=== PATIENT | female | born 1960 | race Caucasian/White ===

== ENCOUNTER 2024-10-08 10:28 | Outpatient (REF) | payer MEDICAID, SELFPAY ==
[2024-10-08 11:04] LABS: MANUAL DIFF FLAG NO
[2024-10-08 12:01] LABS: Basophils Percent Auto 0.7 % (0-2); Eosinophils Absolute Auto 0.1 X10*3/uL (0.0-0.4); Eosinophils Percent Auto 1.4 % (0-4); Hematocrit 42.6 % (37.0-47.0); Hemoglobin 13.1 g/dl (12.0-16.0); Imm Gran Abs Auto 0.01 X10*3/uL (0.00-0.03); Imm Gran Pct Auto 0.2 % (0.0-0.4); Lymphocytes Absolute Auto 2.3 X10*3/uL (1.2-4.9); Mean Corpuscular HGB Conc 30.8 g/dl (31.0-35.0); Mean Corpuscular Hemoglobin 25.9 pg (27.0-33.0); Mean Corpuscular Volume 84.4 fL (80.0-98.0); Mean Platelet Volume 11.2 fL (9.4-12.3); Monocytes Absolute Auto 0.4 X10*3/uL (0.1-1.2); Monocytes Percent Auto 6.6 % (2-11); Neutrophils Absolute Auto 2.8 x10*3/uL (2.0-8.3); Neutrophils Percent Auto 50.1 % (45-73); Platelet Count 228 X10*3/uL (160-400); Red Blood Count 5.05 X10*6/uL (4.20-5.50); Red Cell Distribution Width 13.7 % (11.0-16.0); White Blood Count 5.6 X10*3/uL (4.8-10.8)
--- OUTSIDE RECORDS SUMMARY | 2024-10-08 12:42 | XMS_ITS | Encounter Summary ---
Author Organization [facility] Address [address] [place] [address] Care Team Providers Care Alumni Relations Coordinator Name Role Phone Amy Ledesma PA-C Primary Care Provider + [phone] Reason for Visit * Reason Comments Dental Restorative Encounter Details Date Type Department Care Team ([facility] st Contact Info) Description 09/20/2024 11:00 AM EST Office Visit [facility] [address] [place] [phone] Geraldo Sam DDS [address] [place] [address] Caries (Primary Dx) Social History Tobacco Use Types Packs/Day Years Used Date Smoking Tobacco: Never Smokeless Tobacco: Never Alcohol Use Standard Drinks/Week Comments No 0 (1 standard drink = 0.6 oz pur e alcohol) Social Connections Answer Date Recorded Connectedness 1 09/04/2024 Financial Resource Strain Answer Date R ecorded Financial Resource Strain 1 2024 Stress Answer Date Recorded Stress 1 09/04/2024 Physical Activity Answer Date Recorded Physical Activity 0 10/21/2020 Food Insecurity Answer Date Recorded Food 1 09/04/2024 Transportation Needs Answer Date Record ed Transportation 1 09/04/2024 Housing Stability Answer Date Recorded Housing 1 09/04/2024 Safety and Environment Answer Date Papo rded Safety 1 11/28/2023 Utilities Answer Date Recorded Utilities 1 09/04/2024 Employment Answer Date Recorded Stress 0 10/21/2020 Comments No Sex and Gender Information Value Date Recorded Sex Assigned at Female 04/12/2017 10:33 AM PDT Legal Sex Female 7:53 AM PST Gender Identity Female 04/12/2017 10:33 AM PDT Sexual Orientation Straight 04/12/2017 10 :33 AM PDT documented as of this encounter Last Filed Vital Signs Vital Sign Reading Time Taken Comments Blood Pressure 158/81 09/20/2024 11:25 AM EST Pulse 67 09/20/2024 11:25 AM EST Temperature - - Respiratory Rate - - Oxygen Saturation - - Inhaled Oxygen Concentration - - Weight - - Height - - Body Mass Index - - documented in this encounter Progress Notes * Geraldo Sam DDS - 09/20/2024 11:44 AM EST Restorative Subjective Manal Melody Burger, 64 year old female, presents alone for restorative. Esl Professor: Yes: Latvian Chief Complaint Patient presents with Dental Restorative Objective RMHx: Yes Vitals: Vitals: 09/20/24 1125 BP: (!) 158/81 Pulse: 67 BP Site: Left Wrist BP Position: Sitting BP Cuff Size: Regular Adult Pain Score: 0 - No pain Assessment Dx: K02.9 Caries (primary encounter diagnosis) Dx Details (Clinical Decision-Making): #20-DB (V) caries clinical findings. Tooth is Asymptomatic. Plan Informed Consent/PARQ (Procedure, Alternatives, Risks, Questions): Patient confirms informed consent using PARQ. Dental procedures in this visit D2392 - RESIN-BASED COMPOSITE - TWO SURFACES POSTERIOR 20 DB(V) (Completed) Service provider: Geraldo Sam DDS Billing provider: Geraldo Sam DDS Topical Anesthetic: 20% topical benzocaine Local Anesthetic: 1/4 carpule 2% lidocaine with 1:100k epi Injection administered: Infiltration Isolation used: Cotton roll Excavation of caries completed. No pulpal involvement Details: Etch, Marino, Fuji II LC Shade: A3. Contour/Trinidadian: Yes Verified floss Post-Op Information Given: verbal Referral: No orders of the following type(s) were placed in this encounter: Referral. Rx: No orders of the defined types were placed in this encounter. Behavior: Compliant DA: Nila Morrissey [place]: Recall Exam - 6 months VS Ext ROMA Lambert documented in this encounter Plan of Treatment Upcoming Encounters Date Type Department Care Team (Late st Contact Info) Description 10/28/2024 11:00 AM EDT /MH Visits [facility] [address] [place] [phone] Adolfo Katherine, APPLICATIONS INTERN [address] [place] [address] 02/06/2025 4:20 PM EDT Office Visit [facility] [address] [place] [phone] Lorena Storm [address] [place], [place] [phone] documented as of this encounter Procedures Procedure Name Priority Date/Time Associated Diagnosis Comments 20 DB(V) RESIN-BASED COMPOSITE - TWO SURFACES POSTERIOR Routine 09/20/2024 11:00 AM EST Caries documented in this encounter Visit Diagnoses Diagnosis Caries- Primary Unspecified dental caries documented in this encounter Additional Health Concerns Assessment Noted Time PHQ-9 Depression Total Score: 0 09/04/19 25 11:36 AM PST documented as of this encounter Care Teams Alumni Relations Coordinator Relationship Specialty Start Date End Date Amy Ledesma PA-C [address] [place] [phone] PCP - General FAMILY MEDICINERAPHAEL 08/23/21 documented as of this encounter
--- OUTSIDE RECORDS SUMMARY | 2024-10-08 12:42 | XMS_ITS | Encounter Summary ---
Author Organization [facility] Address [address] [place] [address] Care Team Providers Care Municipal Firefighter Name Role Phone Amy Ledesma PA-C Primary Care Provider + [phone] Reason for Visit * Reason Comments Individual Counseling Telehealth (Video) Encounter Details Date Type Department Care Team ([facility] Contact Info) Description 09/23/2024 1:45 PM [facility]/ Visits [address] [phone] Chris Mata, [facility] [address] [place], [place] [phone] Major depressive disorder with current active episode, unspecified depression episode severity, unspecified whether recurrent - Severe (Primary Dx); PTSD (post-traumatic stress disorder) - Moderate Social History Tobacco Use Types Packs/Day Years [...] AM PDT documented as of this encounter Progress Notes * HARRIET Campbell - 09/23/2024 1:45 PM EST The following visit was conducted via Telephone. I educated the patient/guardian on the terms of telehealth and the patient verbally consented to this telemedicine visit. The patient was identified using their Name, and [facility] ID. I identified myself as CHRIS MATA HOME HEALTH ASSISTANT from [facility]. It was conducted in a private space to protect HIPPA sensitive information. Precautions were taken to provide confidentiality and security and patient was made aware of privacy considerations. The patients location was obtained and is [facility] The patient/guardian was notified that the services were being provided from [facility] Location. The patient/guardian was notified how they can see a clinician in-person in the event of an emergency or if otherwise needed. Visit START TIME 1:47 END TIME 2:13 Acquisition Manager used during visit? No TOTAL TIME IN SESSION: 30 minutes START/ END TIME: RISK ASSESSMENT: PERSON DENIES SI/HI OTHER PEOPLE PRESENT IN SESSION: NONE Assessed Needs/Goals/Objectives/Services Status Priority Assessed Needs 1: BH, Phys Hlth & Wellness Active 1 - High Status Target Date Goal 1.1: Lower client sx of depression, PTSD from all the time sever to 4-5 times a week moderte Active 03/26/2025 Status Target Date Objective 1.1.1: Client will be open to learn and practice sx and interventions about depression and PTSD to lower and manage her sx. Active 03/26/2025 Service Plan BH, Phys Hlth & Wellness Lower client sx of depression, PTSD from all the time sever to 4-5 times a week moderte Client will be open to learn and practice sx and interventions about depression and PTSD to lower and manage her sx. PROGRESS SINCE LAST SESSION TOWARD GOALS/OBJECTIVES: Client stated having dreams of placese back home with people she dos not recognize. She stated feeling home sick to her sisters and their children. Her own grand children who are in another state. NEW CONCERNS TODAY: NEED TO COMPLETE COMPREHENSIVE ASSESSMENT AND IAP UPDATES Health issues making it difficult for her to travel. MOOD: DYSPHORIC and ANXIOUS AFFECT: FULL RANGE AND CONGRUENT WITH MOOD SPEECH: WNL BEHAVIOR: COOPERATIVE EYE CONTACT: phone call, no eye contact THOUGHT PROCESSES: WNL ORIENTATION: WNL MEDICAL CONCERNS: NOTHING NEW COMMENT: SUBSTANCE USE: NO HX INTERVENTIONS: Allowed time for client to tell his/her story and express emotions attached to story. Validated and empathized with emotions expressed. Brain stormed with client ways to manage her mood. PERSON'S RESPONSE TO INTERVENTIONS: FULLY ENGAGED and COOPERATIVE PLAN FOR NEXT SESSION: Support and teach client skills to lower and manage her sx. DATE OF NEXT SESSION: 10/28 CLIENT WILL: CONSIDER HOW DISCUSSION RELATES TO HIS/HER LIFE documented in this encounter Plan of Treatment Upcoming Encounters Date Type Department Care Team (Late st Contact Info) Description 10/28/2024 11:00 AM EDT / Visits [facility] [address] [place] [phone] Chris Mata LICSW [address] [place] [address] 02/06/2025 4:20 PM EDT Office Visit [facility] [address] [place] [phone] Lorena Storm [address] [place] [address] documented as of this encounter Visit Diagnoses Diagnosis Major depressive disorder with current active episode, unspecified depression episode severity, unspecified whether recurrent - Severe- Primary PTSD (post-traumatic stress disorder) - Moderate Posttraumatic stress disorder documented in this encounter Additional Health Concerns Assessment Noted Time PHQ-9 Depression Total Score: 0 09/04/19 25 11:36 AM PST documented as of this encounter Care Teams Municipal Firefighter Relationship Specialty Start Date End Date Amy Ledesma PA-C [address] [place] [phone] PCP - General FAMILY MEDICINE, [place] 08/23/21 documented as of this encounter
--- OUTSIDE RECORDS SUMMARY | 2024-10-08 12:43 | XMS_ITS | Encounter Summary ---
Author Organization [facility] Address [address] [place] [address] Care Team Providers Care Environmental Marketer Name Role Phone Amy Ledesma Primary Care Provider [phone] Reason for Visit * Reason Onset Date Comments ROCT - 25586 (Ok to Book) 10/02/2024 Encounter Details Date Type Department Care Team (Late st Contact Info) Description 10/02/2024 Telephone [facility] [address] [phone] Francis Mar MD [address] [facility] [address] [place] [address] ROCT - 99526 (Ok to Book) Social History Tobacco Use Types Packs/Day Years Used Date Smoking Tobacco: Never Smokeless Tobacco: Never Alcohol Use Standard Drinks/Week Comments No 0 (1 standard drink = 0.6 oz pur e alcohol) Comments Unknown Sex and Gender Information Value Date Recorded Sex Assigned at Not on file Legal Sex Female 9:36 AM EST Gender Identity Not on file Sexual Orientation Not on file documented as of this encounter Progress Notes * Lizz Frazier RN - 10/02/2024 10:33 AM EST Pt will be enrolled for home delivery of 21 day ROCT monitor per Bhavana Key. * Marion London - 10/02/2024 8:55 AM EST Prior Auth Status: NO Auth Req per Medicaid Insurance Referral: N/A CPT: 02083 - ROCT DX: I48.0, I47.10, R00.2 Duration: 21 Days [place]: Isabela cuellar BOOK documented in this encounter Plan of Treatment Upcoming Encounters Date Type Department Care Team (Late st Contact Info) Description 12/19/2024 11:00 AM EDT Appointment [facility] [address] [place] [address] 01/01/2025 10:40 AM EDT Office Visit [facility] - [facility] [address] [facility] [address] [place] [address] Bhavana Key PA [address] [place] [address] documented as of this encounter Visit Diagnoses Not on filedocumented in this encounter Care Teams Environmental Marketer Relationship Specialty Start Date End Date Amy Ledesma PA [address] [place] [address] PCP - General 04/06/23 documented as of this encounter
--- OUTSIDE RECORDS SUMMARY | 2024-10-08 12:43 | XMS_ITS | Encounter Summary ---
Author Organization [facility] Address [address] [place] [address] Care Team Providers Care Belt Sander Stone Name Role Phone Venkatesh Stewart PA-C Primary Care Provider + [phone] Reason for Referral * Radiology Services (Routine) - Authorized Specialty Diagnoses / Procedures Referred By Contjuany t Referred To Contact Diagnoses Post-menopausal Procedures REFERRAL FOR BONE DENSITY TESTING Venkatesh Steawrt PA-C [address] [place] [address] Phone: tel: fax: [facility] [address] [place], [place] Phone: tel: fax: Referral ID Status Reason Start Date Expiration Date Visits Requested Visits Authorized [id number] Authorized Service Not Available at Clinic 09/04/2024 09/04/2025 1 1 Reason for Visit * Reason Comments Follow Up Four month follow up no concern Encounter Details Date Type Department Care Team (Late st Contact Info) Description 09/04/2024 11:20 AM EST Office Visit [facility] [address] [place] [address] Venkatesh Stewart PA-C [address] [place] [address] Primary hypertension (Primary Dx); Dyslipidemia; Prediabetes; Vitamin D deficiency; Post-menopausal Social History Tobacco Use Types Packs/Day Years Used Date Smoking Tobacco: Never Smokeless Tobacco: Never Tobacco Cessation:Counseling Given: No Alcohol Use Standard Drinks/Week Comments No 0 [...] 1 09/04/2024 Safety and Environment Answer Date Ppao rded Safety 1 11/28/2023 Utilities Answer Date Recorded Utilities 1 09/04/2024 Employment Answer Date Recorded Stress 0 10/21/2020 Comments No Sex and Gender Information Value Date Recorded Sex Assigned at Female 04/12/2017 10:33 AM PDT Legal Sex Female 7:53 AM PST Gender Identity Female 04/12/2017 10:33 AM PDT Sexual Orientation Straight 04/12/2017 10 :33 AM PDT COVID-19 Exposure Response Date Recorded In the last 10 days, have yo u been in contact with someone who was confirmed or suspected to have Coronavirus/COVID-19? Unable to assess 08/14/2024 1:14 PM EST documented as of this encounter Last Filed Vital Signs Vital Sign Reading Time Taken Comments Blood Pressure 122/88 09/04/2024 11:32 AM EST Pulse 66 09/04/2024 11:32 AM EST Temperature 36.3 ??C (97.4 ??F) 09/04/2024 11:[address] Respiratory Rate 16 09/04/2024 11:32 AM EST Oxygen Saturation 98% 09/04/2024 11:32 AM EST Inhaled Oxygen Concentration - - Weight 72 kg (158 lb 12.8 oz) 09/04/2024 11:32 A M EST Height 157.5 cm (5' 2 ) 09/04/2024 11:32 AM EST Body Mass Index 29.04 09/04/2024 11:32 AM EST documented in this encounter Progress Notes * Venkatesh Stewart PA-C - 10/04/2024 1:52 PM ESTAddended by: VENKATESH STEWART on: 10/04/2024 01:52 PM Modules accepted: Orders * Venkatesh Stewart PA-C - 09/04/2024 11:37 AM EST Subjective: CC: Follow Up (Four month follow up no concern) Banquet Lead: HPI: Migel VagrasKennaGriselda Tao is a 64 year old female patient who presents today for follow up. Last 3 BP Readings: Date: BP: 09/04/2024 122/88 08/02/2024 149/84 05/20/2024 149/89 Lab Results Component Value Date TRIGLYC 229 (H) 04/26/2024 CHOL 151 04/26/2024 HDL 38 (L) 04/26/2024 LDL 81 04/26/2024 CHOLHDL 4.0 04/26/2024 NONHDL 113 04/26/2024 Lab Results Component Value Date HGBA1C 6.2 (H) 04/26/2024 HGBA1C 6.2 (H) 12/01/2023 HGBA1C 6.0 (H) 03/14/2023 No Known Allergies Patient Active Problem List Diagnosis Chronic cardiac arrhythmia Supraventricular tachycardia ([facility]) Low back pain PAF (paroxysmal atrial fibrillation) ([facility]) Prediabetes Dyslipidemia Kidney stones, calcium oxalate Fibromyalgia Sacroiliitis ([facility]) Osteopenia Vitamin D deficiency Cervical osteoarthritis Osteoarthritis thoracic spine Palpitations Use of cane as ambulatory aid LIZETT positive HTN (hypertension) Episode of recurrent major depressive disorder ([facility]) Vaginal dryness, menopausal PTSD (post-traumatic stress disorder) Current Outpatient Medications: metFORMIN (GLUCOPHAGE) 500 mg tablet, TAKE 1 TABLET BY MOUTH ONCE DAILY WITH BREAKFAST, Disp: 90 Tablet, Rfl: 1 atorvastatin (LIPITOR) 20 mg tablet, TAKE 1 TABLET BY MOUTH ONCE DAILY WITH DINNER, Disp: 90 Tablet, Rfl: 1 cholecalciferol (VITAMIN D-3) 25 mcg (1,000 unit) tablet, TAKE 1 TABLET BY MOUTH EVERY DAY, Disp: 90 Tablet, Rfl: 1 bisoprolol (ZEBETA) 5 mg tablet, Take 5 mg by mouth once daily, Disp: , Rfl: escitalopram (LEXAPRO) 20 mg tablet, Take 20 mg by mouth once daily, Disp: , Rfl: LORazepam (ATIVAN) 0.5 mg tablet, Take 0.5 mg by mouth nightly at bedtime as needed for anxiety, Disp: , Rfl: MULTAQ 400 mg tab, Take 1 Tablet by mouth 2 (two) times daily, Disp: , Rfl: acetaminophen (TYLENOL) 500 mg tablet, TAKE 1 TABLET BY MOUTH EVERY 6 HOURS NEEDED FOR PAIN OR FEVER, Disp: 120 Tablet, Rfl: 2 estradioL (ESTRACE) 0.01 % (0.1 mg/gram) vaginal cream, Place 2 g vaginally nightly at bedtime for 14 days, THEN 2 g 2 times a week for 360 days., Disp: 42.5 g, Rfl: 5 pregabalin (LYRICA) 75 mg capsule, Take 75 mg by mouth 2 (two) times daily, Disp: , Rfl: triamcinolone (KENALOG) 0.025 % ointment, Apply topically 2 (two) times daily, Disp: 15 g, Rfl: 0 baclofen (LIORESAL) 10 mg tablet, TAKE 1 TABLET BY MOUTH TWICE A DAY NEEDED, Disp: , Rfl: loratadine (CLARITIN) 10 mg tablet, Take 1 Tablet by mouth once daily as needed for allergies, Disp: 90 Tablet, Rfl: 1 losartan (COZAAR) 25 mg tablet, Take 25 mg by mouth, Disp: , Rfl: apixaban (ELIQUIS) 5 mg tab, Take 5 mg by mouth, Disp: , Rfl: metoprolol tartrate (LOPRESSOR) 25 mg tablet, Take 25 mg by mouth, Disp: , Rfl: sertraline (ZOLOFT) 50 mg tablet, Take 1 Tablet by mouth once daily, Disp: , Rfl: gabapentin (NEURONTIN) 100 mg capsule, TAKE 1 CAPSULE BY MOUTH THREE TIMES A DAY, Disp: 90 Capsule,Rfl: 3 diclofenac sodium (VOLTAREN) 1 % gel, Apply 2 gm topically two to three times per day as needed to affected area for pain relief, Disp: 100 g, Rfl: 1 calcium carbonate-vitamin D3 500 mg(1,250mg) -400 unit tablet, Take 1 Tab by mouth 2 (two) times daily, Disp: 60 Tab, Rfl: 11 Review of Systems Remainder ROS: See HPI, systems reviewed and are otherwise negative or noncontributory. Objective: Vitals: 09/04/24 1132 BP: 122/88 Pulse: 66 Resp: 16 Temp: 97.4 ??F (36.3 ??C) TempSrc: Oral SpO2: 98% Weight: 158 lb 12.8 oz (72 kg) Height: 5' 2 (1.575 m) Body mass index is 29.04 kg/m??. Physical Exam Constitutional: General: She is not in acute distress. Cardiovascular: Rate and Rhythm: Normal rate and regular rhythm. Pulmonary: Effort: Pulmonary effort is normal. No respiratory distress. Breath sounds: Normal breath sounds. Neurological: Mental Status: She is alert and oriented to person, place, and time. 09/04/2024 11:36 AM Little interest or pleasure in doing things Not at all Feeling down, depressed or hopeless [include irritable if under 18] Not at all Trouble falling or staying asleep, or sleeping too much Not at all Feeling tired or having little energy Not at all Poor appetite or overeating Not at all Feeling bad about yourself - or that you are a failure or have let yourself or your family down Notat all Trouble concentrating on things like school work, reading or watching TV? Not at all Moving or speaking so slowly that other people could have noticed? Or the opposite - being so fidgety or restless that you have been moving around a lot more than usual Not at all Thoughts you would be better off or of hurting yourself in some way Not at all If you checked off any problems, how difficult have these problems made it for you to do your work,take care of things at home, or get along with other people? Not difficult at all PHQ-9 Total Score (Auto Calculated) 0 Depression Severity: None-minimal Assessment and Plan: Migel Burger is a 64 year old female patient who was seen today for follow up. Labs ordered, advised fasting. Advised to call with any questions or concerns. Weight management:BMI follow up plan: The patient was counseled regarding nutrition and physical activity. Counseled for healthy lifestyle, dietary habits, physical activity and regular exercise.Encouraged to make healthier eating choices with less refined carbs and smaller portions along with regular exercise 3-4x/week for at least 20-30min. Avoid fried foods, oily foods and limit foods rich in dense calories. Increase fruits and vegetables. I10 Primary hypertension (primary encounter diagnosis) Plan : BLOOD COUNT COMPLETE AUTO&AUTO DIFRNTL WBC COMPREHENSIVE METABOLIC PANEL LIPID PANEL E78.5 Dyslipidemia Plan : BLOOD COUNT COMPLETE AUTO&AUTO DIFRNTL WBC COMPREHENSIVE METABOLIC PANEL LIPID PANEL R73.03 Prediabetes Plan : BLOOD COUNT COMPLETE AUTO&AUTO DIFRNTL WBC COMPREHENSIVE METABOLIC PANEL HEMOGLOBIN GLYCOSYLATED A1C LIPID PANEL E55.9 Vitamin D deficiency Plan : VITAMIN D, 1,25-DIHYDROXY Z78.0 Post-menopausal Plan : REFERRAL FOR BONE DENSITY TESTING ASSAY OF MAGNESIUM VITAMIN B12 & FOLATE IRON PANEL W TOTAL IRON BINDING CAPACITY Return in about 4 months (around 01/02/2025) for f/u pre-DM, htn, hld . documented in this encounter Miscellaneous Notes * Result Encounter Note - Venkatesh Stewart PA-C - 10/04/2024 1:52 PM EST Please let pt know that A1C keeps creeping up, now at 6.3. 6.5 is DM. Will increase metformin to BID. Thanks! * Patient Instructions - Venkatesh Stewart PA-C - 09/04/2024 11:46 AM EST If you are not able to keep your appointment please call 24-48 hours before your appointment to cancel or reschedule. documented in this encounter Plan of Treatment Upcoming Encounters Date Type Department Care Team (Late st Contact Info) Description 10/28/2024 11:00 AM EDT / Visits [facility] [address] [place] [address] Katherine Mata, [employer] [address] [place], [place] [phone] 02/06/2025 4:20 PM EDT Office Visit [address] [phone] Lorena Storm [address] [place] [address] Scheduled Orders Name Type Priority Associated Diagnoses Orde r Schedule REFERRAL FOR BONE DENSITY TESTING Imaging Routine Post-menopausal Ordered: 09/04/2024 documented as of this encounter Procedures Procedure Name Priority Date/Time Associated Diagnosis Comments VITAMIN D, 1,25-DIHYDROXY Routine 10/02/2024 7:48 AM EST Vitamin D deficiency IRON PANEL W TOTAL IRON BINDING CAPACITY Routine 10/02/2024 7:48 AM EST Post-menopausal VITAMIN B12 & FOLATE Routine 10/02/2024 7:48 AM EST Post-menopausal BLOOD COUNT COMPLETE AUTO&AUTO DIFRNTL WBC Routine 10/02/2024 7:48 AM EST Primary hypertension Dyslipidemia Prediabetes ASSAY OF MAGNESIUM Routine 10/02/2024 7: 48 AM EST Post-menopausal HEMOGLOBIN GLYCOSYLATED A1C Routine 10/02/2024 7:48 AM EST Prediabetes LIPID PANEL Routine 10/02/2024 7:48 AM EST Primary hypertension Dyslipidemia Prediabetes COMPREHENSIVE METABOLIC PANEL Routine 10/02/2024 7:48 AM EST Primary hypertension Dyslipidemia Prediabetes documented in this encounter Results * IRON PANEL W TOTAL IRON BINDING CAPACITY (10/02/2024 7:48 AM EST) IRON, TOTAL 77 45 - 160 mcg/dL [facility] IRON BINDING CAPACITY 344 250 - 450 mcg/dL (calc) [facility] % SATURATION 22 16 - 45 % (calc) [facility] Blood Blood / Unknown 10/02/2024 7 :48 AM EST 10/02/2024 7:49 AM EST Narrative [facility] - 10/06/2024 4:34 PM EDT FASTING:YES Venkatesh Stewart PA-C LAB - BLOOD DRAW Edited Resu lt - Final Performing Organization Address City/[facility]/ZIP Co de Phone Number [facility] [address] [address], [facility] [address] [address] * VITAMIN B12 & FOLATE (10/02/2024 7:48 AM EST) [facility] VITAMIN B12 304 200 - 1,100 pg/mL [facility] Comment: Please Note: Although the reference range for vitamin B12 is 200-1100 pg/mL, it has been reported that between 5 and 10% of patients with values between 200 and 400 pg/mL may experience neuropsychiatric and hematologic abnormalities due to occult B12 deficiency; less than 1% of patients with values above 400 pg/mL will have symptoms. FOLATE, SERUM 13.9 5.5 ng/mL [facility] Comment: ? Reference Range ? Low: ? <3.4 ? Borderline: ?3.4-5.4 ? Normal: ?>5.4 Blood Blood / Unknown 10/02/2024 7 :48 AM EST 10/02/2024 7:49 AM EST Narrative [facility] - 10/06/2024 4:34 PM EDT FASTING:YES Venkatesh Stewart PA-C LAB - BLOOD DRAW Edited Resu lt - Final Performing Organization Address [facility]/ZIP Co de Phone Number [facility] [address] [address], [facility] [address] [address] * ASSAY OF MAGNESIUM (10/02/2024 7:48 AM EST) MAGNESIUM 2.2 1.5 - 2.5 mg/dL [facility] Blood Blood / Unknown 10/02/2024 7 :48 AM EST 10/02/2024 7:49 AM EST Narrative [facility] - 10/06/2024 4:34 PM EDT FASTING:YES us Venkatesh Stewart PA-C LAB - BLOOD DRAW Edited Resu lt - Final [facility] [address] [address], [facility] [address] [address] * VITAMIN D, 1,25-DIHYDROXY (10/02/2024 7:48 AM EST) VITAMIN D, 1, 25 (OH)2, TOTAL 44 18 - 72 pg/mL [facility] VITAMIN D3, 1, 25 (OH)2 44 pg/mL [facility] VITAMIN D2, 1, 25 (OH)2 <8 pg/mL [facility] Comment: Vitamin D3, 1,25(OH)2 indicates both endogenous production and supplementation. Vitamin D2, 1,25(OH)2 is an indicator of exogenous sources, such as diet or supplementation. ??Interpretation and therapy are based on measurement of Vitamin D,1,25(OH)2, Total. This test was developed and its analytical performance characteristics have been determined by [facility], [place], [place]. It has not been cleared or approved by the FDA. This assay has been validated pursuant to the CLIA regulations and is used for clinical purposes. Blood Blood / Unknown 10/02/2024 7 :48 AM EST 10/02/2024 7:49 AM EST Narrative [facility] - 10/06/2024 4:34 PM EDT FASTING:YES Venkatesh Stewart PA-C LAB - BLOOD DRAW Final Resul t Performing Organization Address City/[facility]/ZIP Co de Phone Number [facility] [address] [place], [place] , [facility]/[place] [address] [place], [place] * (ABNORMAL) LIPID PANEL (10/02/2024 7:48 AM EST) [facility] Signature CHOLESTEROL, TOTAL 129 <200 mg/dL [facility] HDL CHOLESTEROL 49(L) > OR = 50 mg/dL [facility] TRIGLYCERIDES 115 <150 mg/dL [facility] LDL-CHOLESTEROL 60 99 mg/dL (calc) [facility] Comment: Reference range: <100 Desirable range <100 mg/dL for primary prevention; ?? <70 mg/dL for patients with CHD or diabetic patients with > or = 2 CHD risk factors. LDL-C is now calculated using the Terry calculation, which is a validated novel method providing better accuracy than the Friedewald equation in the estimation of LDL-C. Jurgen BAI et al. FELY. 2013;310(19): 5020-5660 (http://education.[employer]/faq/BPO749) CHOL/HDLC RATIO 2.6 <5.0 (calc) [facility] NON-HDL CHOLESTEROL 80 <130 mg/dL (calc) [facility] Comment: For patients with diabetes plus 1 major ASCVD risk factor, treating to a non-HDL-C goal of <100 mg/dL (LDL-C of <70 mg/dL) is considered a therapeutic option. Blood Blood / Unknown 10/02/2024 7 :48 AM EST 10/02/2024 7:49 AM EST Narrative [facility] - 10/06/2024 4:34 PM EDT FASTING:YES us Venkatesh Stewart PA-C LAB - BLOOD DRAW Final Resul t Performing Organization Address City/[facility]/ZIP Co de Phone Number [facility] [address] [address], [facility] [address] [address] * (ABNORMAL) HEMOGLOBIN GLYCOSYLATED A1C (10/02/2024 7:48 AM EST) HEMOGLOBIN A1C 6.3(H) <5.7 % of total Hgb [facility] Comment: For someone without known diabetes, a hemoglobin A1c value between 5.7% and 6.4% is consistent with prediabetes and should be confirmed with a follow-up test. For someone with known diabetes, a value <7% indicates that their diabetes is well controlled. A1c targets should be individualized based on duration of diabetes, age, comorbid conditions, and other considerations. This assay result is consistent with an increased risk of diabetes. Currently, no consensus exists regarding use of hemoglobin A1c for diagnosis of diabetes for children. Blood Blood / Unknown 10/02/2024 7 :48 AM EST 10/02/2024 7:49 AM EST Narrative [facility] - 10/06/2024 4:34 PM EDT FASTING:YES Venkatesh Stewart PA-C LAB - BLOOD DRAW Edited Resu lt - Final [facility] [address] [place] [address], [facility] [address] [address] * (ABNORMAL) COMPREHENSIVE METABOLIC PANEL (10/02/2024 7:48 AM EST) GLUCOSE 113(H) 65 - 99 mg/dL [facility] Comment: ?Fasting reference interval For someone without known diabetes, a glucose value between 100 and 125 mg/dL is consistent with prediabetes and should be confirmed with a follow-up test. UREA NITROGEN (BUN) 14 7 - 25 mg/dL [facility] CREATININE (blood) 0.67 0.50 - 1.05 mg/dL [facility] EGFR 97 > OR = 60 mL/min/1. 73m2 [facility] BUN/CREATININE RATIO SEE NOTE: [facility] Comment: ?? Not Reported: BUN and Creatinine are within ?? reference range. ? SODIUM 140 135 - 146 mmol/L [facility] POTASSIUM 4.0 3.5 - 5.3 mmol/L [facility] CHLORIDE 105 98 - 110 mmol/L [facility] CARBON DIOXIDE 25 20 - 32 mmol/L [facility] CALCIUM 9.3 8.6 - 10.4 mg/dL [facility] PROTEIN, TOTAL 7.1 6.1 - 8.1 g/dL [facility] ALBUMIN 4.5 3.6 - 5.1 g/dL [facility] GLOBULIN 2.6 1.9 - 3.7 g/dL (calc) [facility] ALBUMIN/GLOBULI N RATIO 1.7 1.0 - 2.5 (calc) [facility] BILIRUBIN, TOTAL 0.4 0.2 - 1.2 mg/dL [facility] ALKALINE PHOSPHATASE 56 37 - 153 U/L [facility] AST 14 10 - 35 U/L [facility] ALT 13 6 - 29 U/L [facility] Blood Blood / Unknown 10/02/2024 7 :48 AM EST 10/02/2024 7:49 AM EST Narrative [facility] - 10/06/2024 4:34 PM EDT FASTING:YES Venkatesh Stewart PA-C LAB - BLOOD DRAW Edited Resu lt - Final [facility] [address] [address], [facility] [address] [address] * (ABNORMAL) BLOOD COUNT COMPLETE AUTO&AUTO DIFRNTL WBC (10/02/2024 7:48 AM EST) WHITE BLOOD CELL COUNT 5.6 3.8 - 10.8 Thousand/ uL [facility] RED BLOOD CELL COUNT 5.02 3.80 - 5.10 Million/u L [facility] HEMOGLOBIN 13.1 11.7 - 15.5 g/dL [facility] HEMATOCRIT 42.6 35.0 - 45.0 % [facility] MCV 84.9 80.0 - 100.0 fL [facility] MCH 26.1(L) 27.0 - 33.0 pg [facility] MCHC 30.8(L) 32.0 - 36.0 g/dL [facility] Comment: For adults, a slight decrease in the calculated MCHC value (in the range of 30 to 32 g/dL) is most likely not clinically significant; however, it should be interpreted with caution in correlation with other red cell parameters and the patient's clinical condition. RDW 13.4 11.0 - 15.0 % [facility] PLATELET COUNT 218 140 - 400 Thousand/ uL [facility] MPV 11.9 7.5 - 12.5 fL [facility] ABSOLUTE NEUTROPHILS 2,318 1,500 - 7,800 cells/uL [facility] ABSOLUTE LYMPHOCYTES 2,727 850 - 3,900 cells/uL [facility] ABSOLUTE MONOCYTES 431 200 - 950 cells/uL [facility] ABSOLUTE EOSINOPHILS 73 15 - 500 cells/uL [facility] ABSOLUTE BASOPHILS 50 0 - 200 cells/uL [facility] NEUTROPHILS PCT 41.4 % [facility] LYMPHOCYTES 48.7 % [facility] MONOCYTES 7.7 % [facility] EOSINOPHILS 1.3 % [facility] BASOPHILS 0.9 % [facility] Blood Blood / Unknown 10/02/2024 7 :48 AM EST 10/02/2024 7:49 AM EST Narrative [facility] - 10/06/2024 4:34 PM EDT FASTING:YES us Venkatesh Stewart PA-C LAB - BLOOD DRAW Edited Resu lt - Final [facility] [employer] [address] [address], [facility] [address] [place] [address] documented in this encounter Visit Diagnoses Diagnosis Primary hypertension- Primary Unspecified essential hypertension Dyslipidemia Other and unspecified hyperlipidemia Prediabetes Other abnormal glucose Vitamin D deficiency Post-menopausal Asymptomatic postmenopausal status (age-related) (natural) documented in this encounter Additional Health Concerns Assessment Noted Time PHQ-9 Depression Total Score: 0 09/04/19 25 11:36 AM PST documented as of this encounter Care Teams Belt Sander Stone Relationship Specialty Start Date End Date Venkatesh Stewart PA-C NPI: [id number] [place] [id number] PCP - General [facility] 08/23/21 documented as of this encounter
--- OUTSIDE RECORDS SUMMARY | 2024-10-08 12:43 | XMS_ITS | Clinical Summary ---
Author Organization [address] [place] [address] Address [address] [place] [address] Phone Care Team Providers Care Milk Pickup Driver Name Role Phone Amy Ledesma Primary Care Provider [phone] Allergies No known active allergies Medications losartan (COZAAR) 25 mg tablet Take 1 tablet (25 mg total) by mouth 1 (one) time each day. 90 tablet 2 4 Active acetaminophen (TYLENOL) 500 mg tablet Take 500 mg by mouth every 6 hours as needed. Active atorvastatin (LIPITOR) 20 mg tablet Take 1 Tablet by mouth at bedtime. 3 Active cholecalcifero l (VITAMIN D-3) 25 mcg (1,000 unit) capsule Take 1 Cap by mouth daily. 1 Active apixaban (Eliquis) 5 mg tablet TAKE 1 TABLET BY MOUTH TWICE DAILY 4 Active gabapentin (NEURONTIN) 300 mg capsule Take 1 Cap by mouth 2 times daily. 0 Active metFORMIN XR (GLUCOPHAGE-XR ) 500 mg 24 hr tablet Take 500 mg by mouth daily (with breakfast). Active sertraline (ZOLOFT) 50 mg tablet Take 1 Tablet by mouth daily. Active dronedarone (MULTAQ) 400 mg tablet Take 1 tablet (400 mg total) by mouth 2 (two) times a day with meals. Stop bisoprolol 60 each 2 5 11/01/19 25 Active bisoprolol (ZEBETA) 5 mg tablet TAKE 1 TABLET BY MOUTH DAILY 4 10/02/19 25 Discontinu ed(Therapy completed) Active Problems Problem Noted Date Diagnosed Date Increased heart rate 07/19/2022 SOB (shortness of breath) 07/19/2022 Dizziness 04/14/2022 Pre-syncope 04/14/2022 SVT (supraventricular tachycardia) 04/14/2022 Hypertension 11/09/2020 PAF (paroxysmal atrial fibrillation) 11/09/2020 Overview (06/13/2024): This female has paroxysmal atrial fibrillation over a number of years. Her per old notes do mention supraventricular tachycardia but I have not seen a documented episode of SVT. Did have atrial fibrillation on an RCT monitor and frequent atrial ectopy. He was started on bisoprolol and ultimately anticoagulated after her emergency room evaluation for recurrent atrial fibrillation that occurred at the dentist. She is very anxious. She has a relatively low [id number] score of 2 based on female gender and hypertension which appears well-controlled. Last Assessment & Plan: I had a long and thorough conversation with this patient regarding her options for treatment of atrial fibrillation. First and foremost I reassured her that she is in no danger with a normal ECG, normal echocardiogram and being anticoagulated. I think she felt very much reassured. I discussed the potential to use antiarrhythmic agent and I went through several options including multaq and flecainide. She has no structural heart disease and no renal dysfunction with a very normal ECG such that she should have multiple options. I discussed the potential to perform pulmonary vein isolation and I went through that procedure. We ultimately decided to start Multaq and replace bisoprolol with that medication and give it a trial. If it is not effective or well-tolerated she will come back for discussion regarding the ablation. She will continue her healthy lifestyle and treatment of hypertension. 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 Afib Encounters Date Type Department Care Team Description 10/02/2024 Telephone [facility] - [address] [place] [address] Francis Mar MD ROCT - [id number] (Ok to Book) 10/01/2024 2:10 PM EST Office Visit [facility] - [address] [place] [address] Bhavana Key PA PAF (paroxysmal atrial fibrillation) (CMS/HCC) (Primary Dx); SVT (supraventricular tachycardia) (CMS/HCC); Palpitations; Primary hypertension from Last 3 Months Medical History Medical History Date Comments Atrial fibrillation (CMS/HCC) 09/13/2018 DX :Atrial fibrillation (HCC) Hyperlipidemia 09/13/2018 DX:Hyperlipidemi a Spinal pain 09/13/2018 DX:Spinal pain; COMMENT: Neck and thoracic spine areas. 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 DX :Osteoarthritis thoracic spine Social History Tobacco Use Types Packs/Day Years Used Date Smoking Tobacco: Never Smokeless Tobacco: Never Alcohol Use Standard Drinks/Week Comments No 0 (1 standard drink = 0.6 oz pur e alcohol) Comments Unknown Sex and Gender Information Value Date Recorded Sex Assigned at Not on file Legal Sex Female 9:36 AM EST Gender Identity Not on file Sexual Orientation Not on file Obstetrics History Last Filed Vital Signs Vital Sign Reading Time Taken Comments Blood Pressure 112/68 10/01/2024 2:19 PM EST Pulse 58 10/01/2024 2:19 PM EST Temperature - - Respiratory Rate 18 10/01/2024 2:19 PM EST Oxygen Saturation 98% 10/01/2024 2:19 PM EST Inhaled Oxygen Concentration - - Weight 71.2 kg (157 lb) 10/01/2024 1:04 PM EST Height 157.5 cm (5' 2 ) 10/01/2024 1:04 PM EST Body Mass Index 28.72 10/01/2024 1:04 PM EST Plan of Treatment Upcoming Encounters Date Type Department Care Team (Late st Contact Info) Description 12/19/2024 11:00 AM EDT [facility]ointment [facility] [address] [phone] 01/01/2025 10:40 AM EDT Office Visit [facility] - [address] [place] [id number] Bhavana Key PA [address] [place] [address] Health Maintenance Due Date Last Done Comments Breast Cancer Screening 1960 Pneumococcal Vaccine: 50+ Years (2 of 2 - PCV) 04/12/2018 04/12/2017 RSV Immunization Patients 60+ Years Old (1 - Risk 60-74 years 1-dose series) 2019 Colorectal Cancer Screening: Colonoscopy 07/09/2022 Depression Screening 07/09/2022 Hepatitis C Screening 07/09/2022 Social Influencers of Health Screening 07/09/2022 DTaP,Tdap,and Td Vaccines (3 - Td or Tdap) 11/08/2023 11/07/2013, 10/03/2013 Hypertension/CHF/CAD Annual BMP Blood Test 03/14/2024 03/14/2023 COVID-19 Vaccine ( season) 2024 Influenza Vaccine (#1) 2024 , 04/30/2019, 03/30/2018, Additional history exists Falls Risk Assessment 2024 Cholesterol Screening (Lipid Panel) 03/14/2028 03/14/2023 Cervical Cancer Screening: HPV 05/29/2028 05/29/2023 Osteoporosis Screening (Bone Density Screening) 10/09/2028 10/09/2018 MMR Vaccines Aged Out 11/07/2013, 10/03/2013 No lo nger eligible based on patient's age to complete this topic Hepatitis B Vaccines Completed 07/10/2015, 03/13/2015, 11/07/2013 Pneumococcal Vaccine: Pediatrics (0 to 5 Years) and At-Risk Patients (6 to 64 Years) Aged Out 04/12/2017 No longer eligible based on patient's age to complete this topic Zoster Vaccines Completed 06/23/2020, 05/24/2018 HIB Vaccines Aged Out No longer eligi ble based on patient's age to complete this topic HPV Vaccines Aged Out No longer eligi ble based on patient's age to complete this topic Hepatitis A Vaccines Aged Out No long er eligible based on patient's age to complete this topic IPV Vaccines Aged Out No longer eligi ble based on patient's age to complete this topic Meningococcal ACWY Vaccine Aged Out N o longer eligible based on patient's age to complete this topic Meningococcal B Vacine Aged Out No lo nger eligible based on patient's age to complete this topic RSV Immunization Patients Under 20 months Aged Out No longer eligible based on patient's age to complete this topic Varicella Vaccines Aged Out No longer eligible based on patient's age to complete this topic Procedures Procedure Name Priority Date/Time Associated Diagnosis Comments ECG 12-LEAD Routine 10/01/2024 2:17 PM EST PAF (paroxysmal atrial fibrillation) (CMS/HCC) HPV Routine 05/29/2023 ANNUAL BMP BLOOD TEST Routine 03/14/2023 LIPID PANEL Routine 03/14/2023 DXA BONE DENSITY STUDY 1+ SITS AXIAL SKEL Routine 10/09/2018 11:41 AM EDT Menopausal and female climacteric states from Last 3 Months or Most Recently Relevant to Health Maintenance Results * ECG 12 lead (10/01/2024 2:17 PM EST) Ventricular Rate ECG 54 BPM GEMUSE Atrial Rate 54 BPM GEMUSE P-R Interval 168 ms GEMUSE QRS Duration 94 ms GEMUSE Q-T Interval 430 ms GEMUSE QTc 407 ms GEMUSE P Wave Bishop 15 degrees GEMUSE R Bishop -2 degrees GEMUSE T Bishop 26 degrees GEMUSE ECG Interpretation Sinus bradycardia When compared with ECG of 28-NOV-2014 13:58, No significant change was found Confirmed by JUAN HOUGH ([id number]) on 10/08/2024 12:30:33 PM GEMUSE 10/01/2024 1:16 PM EST 10/08/2024 12:30 PM EDT us Tasneem Gonzales Lowdilmaramsey LAUNDRY HELPER ECG ORDERABLES Edited Resul t - Final GEMUSE * Cervical Cancer Screening: HPV (05/29/2023) [facility] Cervical Cancer Screening: HPV No Interpretation , Abstracted Historical Provider HEALTH MAINTENANCE Final Result * Annual BMP Blood Test (03/14/2023) [facility] Annual BMP Blood Test Abstracted Historical Provider HEALTH MAINTENANCE Final Result * Lipid panel (03/14/2023) [facility] LDL/HDL Ratio 0 Comment:No Interpretation, A bstracted Triglycerides 0 mg/dL Comment:No Interpretation, A bstracted Cholesterol 0 mg/dL Comment:No Interpretation, A bstracted HDL 0 mg/dL Comment:No Interpretation, A bstracted LDL Cholesterol 0 mg/dL Comment:No Interpretation, A bstracted Blood Venous blood specimen / Unknown Historical Provider LAB BLOOD ORDERABLES Ada l Result * DXA BONE DENSITY STUDY 1+ SITS AXIAL SKEL (10/09/2018 11:41 AM EDT) Anatomical Region Laterality Modality Bone Densitometr y 09/13/2018 10:4 9 AM EST Narrative 10/09/2018 5:10 PM EDT DEXA SCAN: Lumbar Spine T-score is -1.5. ?? (SD relative to 20-29 y/o adult) Z-score is -0.1. ??(SD relative to age matched peers) This is considered osteopenia by WHO criteria. Left Hip T-score is -1.1. Z-score is -0.2. This is considered osteopenia by WHO criteria. Comparison exam(s): None. IMPRESSION: Osteopenia by WHO criteria. This patient has a 6.8% risk of major osteoporotic fracture and a 0.4% risk of hip fracture over the next 10 years. (World Health Organization Fracture Risk Assessment) [facility] Department of Internal Medicine recommends using National Osteoporosis Foundation (NOF) guidelines in treatment decisions related to osteoporosis. NOF guidelines suggest considering treatment for postmenopausal women and men aged 50 or older presenting with the following: History of hip or vertebral fracture. T-score = -2.5 (DXA) at the femoral neck, total hip, or spine, after appropriate evaluation to exclude secondary causes. Low bone mass (T-score between -1.0 and -2.5 at the femoral neck or spine) AND a 10-year probability of a hip fracture = 3% OR a 10-year probability of a major osteoporosis-related fracture = 20% based on the [place]-adapted WHO algorithm Please note that all treatment decisions require clinical judgment and consideration of individual patient factors, including patient preferences, co-morbidities, previous drug use, risk factors not captured in the FRAX model (e.g., frailty, falls, vitamin D deficiency, increased bone turnover, interval significant decline in bone density) and possible under- or over-estimation of fracture risk by FRAX. Optional alternative screening schedule based on nori Franco., [facility] August 18, 2011 for patients with osteopenia (based on hip BMD T-score) is as follows: * ??advanced osteopenia (T scores -2.00 to -2.49), BMD testing every year * ??moderate osteopenia (T scores -1.50 to -1.99), BMD testing every 5 years mild osteopenia or normal BMD (T scores -1.50 and higher), BMD testing every 15 years Procedure Note Humberto Natarajan MD - 07/19/2022 DEXA SCAN: Lumbar Spine T-score is -1.5. (SD relative to 20-29 y/o adult) Z-score is -0.1. (SD relative to age matched peers) This is considered osteopenia by WHO criteria. Left Hip T-score is -1.1. Z-score is -0.2. This is considered osteopenia by WHO criteria. Comparison exam(s): None. IMPRESSION: Osteopenia by WHO criteria. This patient has a 6.8% risk of majorosteoporotic fracture and a 0.4% risk of hip fracture over the next 10 years. (WorldHealth Organization Fracture Risk Assessment) [facility] Department of Internal Medicine recommendsusing National Osteoporosis Foundation (NOF) guidelines in treatment decisions related toosteoporosis. NOF guidelines suggest considering treatment for postmenopausal women and menaged 50 or older presenting with the following: History of hip or vertebral fracture. T-score = -2.5 (DXA) at the femoral neck, total hip, or spine, afterappropriate evaluation to exclude secondary causes. Low bone mass (T-score between -1.0 and -2.5 at the femoral neck or spine)AND a 10-year probability of a hip fracture = 3% OR a 10-year probability of a majorosteoporosis-related fracture = 20% based on the [place]-adapted WHO algorithm Please note that all treatment decisions require clinical judgment andconsideration of individual patient factors, including patient preferences, co- morbidities,previous drug use, risk factors not captured in the FRAX model (e.g., frailty, falls, vitaminD deficiency, increased bone turnover, interval significant decline in bone density) andpossible under- or over-estimation of fracture risk by FRAX. Optional alternative screening schedule based on nori Franco., [facility]January 2011 for patients with osteopenia (based on hip BMD T-score) is as follows: * advanced osteopenia (T scores -2.00 to -2.49), BMD testing every year * moderate osteopenia (T scores -1.50 to -1.99), BMD testing every 5years mild osteopenia or normal BMD (T scores -1.50 and higher), BMD testingevery 15 years Humberto Robert MD [facility] DXA PROCEDURES Final Res ult from Last 3 Months or Most Recently Relevant to Health Maintenance Insurance MEDICAID - [place] Care Teams Milk Pickup Driver Relationship Specialty Start Date End Date Amy Ledesma PA [facility] [place] [address] PCP - General 04/06/23
--- OUTSIDE RECORDS SUMMARY | 2024-10-08 12:43 | XMS_ITS | Clinical Summary ---
Author Organization [facility] Address [address] [place] [address] Care Team Providers Care Director Of Industrial Relations Name Role Phone Amy Ledesma PA-C Primary Care Provider + [phone] Source Comments PLEASE NOTE, if this patient is a minor, it may be UNLAWFUL to discuss sensitive information that is contained in these records (such as FAMILY PLANNING, MENTAL HEALTH or SUBSTANCE ABUSE) with the minor patient's parent or other person without the patient's specific authorization.[facility] Allergies No known active allergies Medications calcium carbonate-vitami n D3 500 mg(1,250mg) -400 unit tabletIndication s:Osteopenia of multiple sites Take 1 Tab by mouth 2 (two) times daily 60 Tab 11 9 Active diclofenac sodium (VOLTAREN) 1 % gelIndications:M yalgia,Arthralgi a, unspecified joint,Midline low back pain with bilateral sciatica, unspecified chronicity Apply 2 gm topically two to three times per day as needed to affected area for pain relief 100 g 1 1 Active gabapentin (NEURONTIN) 100 mg capsuleIndicatio ns:Midline low back pain with bilateral sciatica, unspecified chronicity TAKE 1 CAPSULE BY MOUTH THREE TIMES A DAY 90 Capsule 3 2 Active apixaban (ELIQUIS) 5 mg tab Take 5 mg by mouth 2 Active sertraline (ZOLOFT) 50 mg tablet Take 1 Tablet by mouth once daily Active metoprolol tartrate (LOPRESSOR) 25 mg tablet Take 25 mg by mouth 1 Active baclofen (LIORESAL) 10 mg tablet TAKE 1 TABLET BY MOUTH TWICE A DAY NEEDED 3 Active losartan (COZAAR) 25 mg tablet Take 25 mg by mouth 3 Active loratadine (CLARITIN) 10 mg tabletIndication s:Seasonal allergies Take 1 Tablet by mouth once daily as needed for allergies 90 Tablet 1 3 Active triamcinolone (KENALOG) 0.025 % ointmentIndicati ons:Atopic dermatitis in adult Apply topically 2 (two) times daily 15 g 3 Active pregabalin (LYRICA) 75 mg capsule Take 75 mg by mouth 2 (two) times daily 3 Active estradioL (ESTRACE) 0.01 % (0.1 mg/gram) vaginal cream Place 2 g vaginally nightly at bedtime for 14 days, THEN 2 g 2 times a week for 360 days. 42.5 g 5 3 Active acetaminophen (TYLENOL) 500 mg tabletIndication s:Midline low back pain with bilateral sciatica, unspecified chronicity TAKE 1 TABLET BY MOUTH EVERY 6 HOURS NEEDED FOR PAIN OR FEVER 120 Tablet 2 3 Active MULTAQ 400 mg tab Take 1 Tablet by mouth 2 (two) times daily Active LORazepam (ATIVAN) 0.5 mg tablet Take 0.5 mg by mouth nightly at bedtime as needed for anxiety 3 Active bisoprolol (ZEBETA) 5 mg tablet Take 5 mg by mouth once daily 4 Active escitalopram (LEXAPRO) 20 mg tablet Take 20 mg by mouth once daily 4 Active cholecalciferol (VITAMIN D-3) 25 mcg (1,000 unit) tabletIndication s:Vitamin D deficiency TAKE 1 TABLET BY MOUTH EVERY DAY 90 Tablet 1 4 Active atorvastatin (LIPITOR) 20 mg tabletIndication s:Dyslipidemia,P rimary hypertension TAKE 1 TABLET BY MOUTH ONCE DAILY WITH DINNER 90 Tablet 1 4 Active metFORMIN (GLUCOPHAGE) 500 mg tabletIndication s:Primary hypertension Take 1 Tablet by mouth 2 (two) times daily with a meal 180 Tablet 1 5 Active metFORMIN (GLUCOPHAGE) 500 mg tabletIndication s:Primary hypertension TAKE 1 TABLET BY MOUTH ONCE DAILY WITH BREAKFAST 90 Tablet 1 4 10/05/19 25 Discontin ued(Reord er (E-Cancel Not Sent)) Active Problems Problem Noted Date Diagnosed Date PTSD (post-traumatic stress disorder) 04/15/2024 Vaginal dryness, menopausal 05/29/2023 Overview (05/29/2023): 05/29: started on vaginal estrogen cream Assessment & Plan (05/29/2023 2:31 PM EDT): - Start Vaginal estrogen cream: daily at bedtime x 2 weeks and then 2x week - (p) Aptima swab to rule out infections - Follow-up in 6 weeks Episode of recurrent major depressive disorder ( [facility]) 04/12/2021 HTN (hypertension) 11/09/2020 LIZETT positive 03/30/2020 Use of cane as ambulatory aid 03/19/2020 Overview (03/19/2020): Uses quad cane for approximately 2 yrs Vitamin D deficiency 02/14/2019 Osteopenia 11/15/2018 Overview (05/08/2020): 10/09/18: DEXA lumbar spine T-score -1.5; left hip T-score -1.1 Noted on DEXA 01/2020 On vit D supplement Cervical osteoarthritis 09/14/2018 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 Afib Fibromyalgia 03/14/2017 Sacroiliitis ([facility]) 03/14/2017 Overview (03/14/2017): Per PSSP presentation is clinically consistent with axial loading pain which is suggestive of sacroiliac pain Prediabetes 06/15/2016 Dyslipidemia 06/15/2016 Kidney stones, calcium oxalate 06/15/2016 Overview (06/15/2016): right PAF (paroxysmal atrial fibrillation) ([facility]) 1 09/15/2014 Supraventricular tachycardia ([facility]) 4 Low back pain 11/07/2013 Chronic cardiac arrhythmia 10/03/2013 Resolved Problems Problem Noted Date Diagnosed Date Resolved Date Myalgia 02/14/2019 06/28/2020 Arthralgia 02/14/2019 03/08/2023 Breast cancer screening 07/07/201706/01 Overview (07/07/2017): [facility] DIAGNOSTIC IMAGING DEPT 06/28/17 No mammographic evidence of malignancy Arthritis 11/07/2013 03/08/2023 Encounters Date Type Department Care Team Description 09/23/2024 1:45 PM EST BH/MH Visits [address] [phone] Katherine Mata LICSW Major depressive disorder with current active episode, unspecified depression episode severity, unspecified whether recurrent - Severe (Primary Dx); PTSD (post-traumatic stress disorder) - Moderate 09/20/2024 11:00 AM EST Office Visit [address] [phone] Geraldo Sam DDS Caries (Primary Dx) 09/04/2024 11:20 AM EST Office Visit [address] [phone] Amy Ledesma PA-C Primary hypertension (Primary Dx); Dyslipidemia; Prediabetes; Vitamin D deficiency; Post-menopausal 08/14/2024 1:00 PM EST BH/MH Visits [address] [phone] Katherine Mata LICSW Major depressive disorder with current active episode, unspecified depression episode severity, unspecified whether recurrent - Severe (Primary Dx); PTSD (post-traumatic stress disorder) - Moderate 08/14/2024 Travel 08/02/2024 11:00 AM EST Office Visit [facility] [address] [place] [phone] Lorena Storm Caries of enamel (incipient) (Primary Dx) 08/02/2024 Travel 07/17/2024 10:00 AM EST BH/MH Visits [address] [phone] Adolfo, Katherine, ORNAMENT SETTER Major depressive disorder with current active episode, unspecified depression episode severity, unspecified whether recurrent - Severe (Primary Dx); PTSD (post-traumatic stress disorder) - Moderate 07/17/2024 Travel from Last 3 Months Immunizations Name Administration Dates Next Due Flu, Cell Culture based, Pre servative Free, 6m+, Flucelvax 04/14/2020,04/30/2019 Flu, Preservative Free 03/30/2018,04/12/2017, Hep B, Adult/Adol (ENERGIX/RECOMBIVAX) 5,03/13/2015,11/07/2013 INFLUENZA, SEASONAL, INJECTABLE 04/30/20 19,03/30/2018,06/22/2014,10/03 MMR (MMR II/Priorix) 11/07/2013,10/03/2013 PNEUMOCOCCAL POLYSACCHARIDE PPV23 04/12/2017 TDAP 10/03/2013 Td (adult), 5 Lf tetanus tox oid, preservative free 11/07/2013 ZOSTER VACCINE, RECOMBINANT (SHINGRIX) 0,05/24/2018 Social History Tobacco Use Types Packs/Day Years [...] Orientation Straight 04/12/2017 10 :33 AM PDT Last Filed Vital Signs Vital Sign Reading Time Taken Comments Blood Pressure 158/81 09/20/2024 11:25 AM EST Pulse 67 09/20/2024 11:25 AM EST Temperature 36.3 ??C (97.4 ??F) 09/04/2024 11:[address] Respiratory Rate 16 09/04/2024 11:32 AM EST Oxygen Saturation 98% 09/04/2024 11:32 AM EST Inhaled Oxygen Concentration - - Weight 72 kg (158 lb 12.8 oz) 09/04/2024 11:32 A M EST Height 157.5 cm (5' 2 ) 09/04/2024 11:32 AM EST Body Mass Index 29.04 09/04/2024 11:32 AM EST Plan of Treatment Upcoming Encounters Date Type Department Care Team (Late st Contact Info) Description 10/28/2024 11:00 AM EDT / Visits [facility] [address] [place] [phone] Katherine Mata, ORNAMENT SETTER [address] [place] [address] 02/06/2025 4:20 PM EDT Office Visit [facility] [address] [place] [phone] Lorena Storm [address] [place] [address] Health Maintenance Due Date Last Done Comments CT Colonography 2004 Colonoscopy 2004 Fecal DNA 2004 Flexible Sigmoidoscopy 2004 FIT/gFOBT 04/12/2018 04/12/2017 Breast Cancer Screening (Mammogram) 06/28/2018 06/28/2017, 02/05/2015 (Managed by Outside Provider) Bone Density Screening 2024 Depression Monitoring 12/02/2024 09/04/2024 , 04/05/2024, 02/27/2024, Additional history exists Imm-Pneumococcal 65+ (2 of 2 - PCV) 12/02/2024 04/12/2017 Postponed from 04/12/2018 (Patient postponement) Imm-Influenza (#1) 2025 04/14/2020, 1 , 04/30/2019, Additional history exists Postponed from 03/31/2024 (Follow up visit) Tobacco Screening 02/26/2025 02/27/2024 Annual Preventive Care Visit 04/05/2025 04/05/2024, 03/14/2023, 01/27/2022, Additional history exists Dental BW 08/04/2025 08/02/2024 Dental Examination 08/04/2025 08/02/2024 Dental Perio Charting 08/04/2025 08/02/2024 Dental Prophy 08/04/2025 08/02/2024 Falls Prevention 09/04/2025 09/04/2024 Diabetes Screening 10/02/2025 10/02/2024, 0 10/02/2024, 04/26/2024, Additional history exists Lipid Screening 10/02/2025 10/02/2024, 04/01, 12/01/2023, Additional history exists Dental FMX/Pano 08/04/2029 08/02/2024 HIV Screening Completed 10/03/2013 Imm-DTaP/Tdap/Td Discontinued 11/07/2013, 10/03/2013 Imm-Hepatitis B Completed 07/10/2015, 02/28, 11/07/2013 Hepatitis C Screening Completed 06/14/2019 Imm-Zoster, Recombinant Completed 06/23/2020, 05/24 Alcohol and Drug Screen Completed 09/04/19, 04/05/2024, 02/27/2024, Additional history exists Colorectal Cancer Screening Discontinued [id number] Discontinued Procedures Procedure Name Priority Date/Time Associated Diagnosis Comments IRON PANEL W TOTAL IRON BINDING CAPACITY Routine 10/02/2024 7:48 AM EST Post-menopausal VITAMIN B12 & FOLATE Routine 10/02/2024 7:48 AM EST Post-menopausal ASSAY OF MAGNESIUM Routine 10/02/2024 7: 48 AM EST Post-menopausal VITAMIN D, 1,25-DIHYDROXY Routine 10/02/2024 7:48 AM EST Vitamin D deficiency LIPID PANEL Routine 10/02/2024 7:48 AM EST Primary hypertension Dyslipidemia Prediabetes HEMOGLOBIN GLYCOSYLATED A1C Routine 10/02/2024 7:48 AM EST Prediabetes COMPREHENSIVE METABOLIC PANEL Routine 10/02/2024 7:48 AM EST Primary hypertension Dyslipidemia Prediabetes BLOOD COUNT COMPLETE AUTO&AUTO DIFRNTL WBC Routine 10/02/2024 7:48 AM EST Primary hypertension Dyslipidemia Prediabetes REFERRAL SCANNED DOCUMENT 10/01/2024 3:00 AM EST 20 DB(V) RESIN-BASED COMPOSITE - TWO SURFACES POSTERIOR Routine 09/20/2024 11:00 AM EST Caries PROPHYLAXIS - ADULT Routine 08/02/2024 1 1:00 AM EST Caries of enamel (incipient) INTRAORAL - COMP SERIES OF RADIOGRAPHIC IMAGES Routine 08/02/2024 11:00 AM EST Caries of enamel (incipient) COMP ORAL EVALUATION - NEW/ESTABLISHED PATIENT Routine 08/02/2024 11:00 AM EST Caries of enamel (incipient) CARIES RISK ASSESSMENT & DOC FINDING HIGH RISK Routine 08/02/2024 11:00 AM EST Caries of enamel (incipient) NUTRITIONAL COUNSELING CONTROL OF DENTAL DISEASE Routine 08/02/2024 11:00 AM EST Caries of enamel (incipient) ORAL HYGIENE INSTRUCTIONS Routine 08/02/2024 11:00 AM EST Caries of enamel (incipient) ORAL CANCER SCREENING Routine 08/02/2024 11:00 AM EST Caries of enamel (incipient) CASE PRESENTATION SUBS DTL & EXTENSIVE TX PLN Routine 08/02/2024 11:00 AM EST Caries of enamel (incipient) 4 CROWN - PORCELAIN/CERAMIC Routine 08/02/2024 12:00 AM EST 28 MOBL COMPOSITE - WISDOM (NON BILLABLE) Routine 08/02/2024 12:00 AM EST 31 MO AMALGAM - WISDOM (NON BILLABLE) Routine 08/02/2024 12:00 AM EST 28 DO AMALGAM - WISDOM (NON BILLABLE) Routine 08/02/2024 12:00 AM EST 15 LO AMALGAM - WISDOM (NON BILLABLE) Routine 08/02/2024 12:00 AM EST 16 B(V)O AMALGAM - WISDOM (NON BILLABLE) Routine 08/02/2024 12:00 AM EST 4 PIN RETENTION - PER TOOTH ADDITION ALEVISM Routine 08/02/2024 12:00 AM EST 31 ROOT CANAL - WISDOM (NO BILLABLE) Routine 08/02/2024 12:00 AM EST 4 ROOT CANAL - WISDOM (NO BILLABLE) Routine 08/02/2024 12:00 AM EST 2 ROOT CANAL - WISDOM (NO BILLABLE) Routine 08/02/2024 12:00 AM EST 2 CROWN - PORCELAIN/CERAMIC Routine 08/02/2024 12:00 AM EST HEPATITIS C ANTIBODY Routine 06/14/2019 9:20 AM EST Screening for viral disease ANTIBODY HIV-1&HIV-2 SINGLE RESULT Routine 10/03/2013 2:06 PM EST Refugee health examination from Last 3 Months or Most Recently Relevant to Health Maintenance Results * VITAMIN D, 1,25-DIHYDROXY (10/02/2024 7:48 AM EST) VITAMIN D, 1, 25 (OH)2, TOTAL 44 18 - 72 pg/mL [facility] VITAMIN D3, 1, 25 (OH)2 44 pg/mL [facility] VITAMIN D2, 1, 25 (OH)2 <8 pg/mL [facility] Comment: Vitamin D3, 1,25(OH)2 indicates both endogenous production and supplementation. Vitamin D2, 1,25(OH)2 is an indicator of exogenous sources, such as diet or supplementation. ??Interpretation and therapy are based on measurement of Vitamin D,1,25(OH)2, Total. This test was developed and its analytical performance characteristics have been determined by [facility], [place], [place]. It has not been cleared or approved by the FDA. This assay has been validated pursuant to the CLIA regulations and is used for clinical purposes. Blood Blood / Unknown 10/02/2024 7 :48 AM EST 10/02/2024 7:49 AM EST Narrative [facility] [facility] [place] - 10/06/2024 4:34 PM EDT FASTING:YES us Amy Ledesma PA-C LAB - BLOOD DRAW Final Resul t Performing Organization Address [facility] de Phone Number [facility] [place] [address] [place], [place] , [facility] [address] * IRON PANEL W TOTAL IRON BINDING CAPACITY (10/02/2024 7:48 AM EST) [facility] IRON, TOTAL 77 45 - 160 mcg/dL [employer] IRON BINDING CAPACITY 344 250 - 450 mcg/dL (calc) [facility] % SATURATION 22 16 - 45 % (calc) [employer] Blood Blood / Unknown 10/02/2024 7 :48 AM EST 10/02/2024 7:49 AM EST Narrative [facility] - 10/06/2024 4:34 PM EDT FASTING:YES us Amy Ledesma PA-C LAB - BLOOD DRAW Edited Resu lt - Final Performing Organization Address [facility] Co de Phone Number [facility] [address] [place] [address], [employer] [address] [address] * VITAMIN B12 & FOLATE (10/02/2024 7:48 AM EST) [facility] VITAMIN B12 304 200 - 1,100 pg/mL [employer] Comment: Please Note: Although the reference range for vitamin B12 is 200-1100 pg/mL, it has been reported that between 5 and 10% of patients with values between 200 and 400 pg/mL may experience neuropsychiatric and hematologic abnormalities due to occult B12 deficiency; less than 1% of patients with values above 400 pg/mL will have symptoms. FOLATE, SERUM 13.9 5.5 ng/mL [employer] Comment: ? Reference Range ? Low: ? <3.4 ? Borderline: ?3.4-5.4 ? Normal: ?>5.4 Blood Blood / Unknown 10/02/2024 7 :48 AM EST 10/02/2024 7:49 AM EST Narrative [facility] - 10/06/2024 4:34 PM EDT FASTING:YES Amy Ledesma PA-C LAB - BLOOD DRAW Edited Resu lt - Final [facility] [address] [address], [employer] [address] [place] [address] * (ABNORMAL) BLOOD COUNT COMPLETE AUTO&AUTO DIFRNTL WBC (10/02/2024 7:48 AM EST) WHITE BLOOD CELL COUNT 5.6 3.8 - 10.8 Thousand/ uL [employer] RED BLOOD CELL COUNT 5.02 3.80 - 5.10 Million/u L [employer] HEMOGLOBIN 13.1 11.7 - 15.5 g/dL [employer] HEMATOCRIT 42.6 35.0 - 45.0 % [employer] MCV 84.9 80.0 - 100.0 fL [employer] MCH 26.1(L) 27.0 - 33.0 pg [employer] MCHC 30.8(L) 32.0 - 36.0 g/dL [employer] Comment: For adults, a slight decrease in the calculated MCHC value (in the range of 30 to 32 g/dL) is most likely not clinically significant; however, it should be interpreted with caution in correlation with other red cell parameters and the patient's clinical condition. RDW 13.4 11.0 - 15.0 % [employer] PLATELET COUNT 218 140 - 400 Thousand/ uL [facility] [facility] MPV 11.9 7.5 - 12.5 fL [employer] [facility] ABSOLUTE NEUTROPHILS 2,318 1,500 - 7,800 cells/uL [facility] [facility] ABSOLUTE LYMPHOCYTES 2,727 850 - 3,900 cells/uL [employer] [facility] ABSOLUTE MONOCYTES 431 200 - 950 cells/uL [facility] [facility] ABSOLUTE EOSINOPHILS 73 15 - 500 cells/uL [facility] [facility] ABSOLUTE BASOPHILS 50 0 - 200 cells/uL [facility] [facility] NEUTROPHILS PCT 41.4 % [facility] LYMPHOCYTES 48.7 % [facility] MONOCYTES 7.7 % [facility] EOSINOPHILS 1.3 % [facility] BASOPHILS 0.9 % [facility] Blood Blood / Unknown 10/02/2024 7 :48 AM EST 10/02/2024 7:49 AM EST Narrative [employer] [facility] - 10/06/2024 4:34 PM EDT FASTING:YES us Amy Ledesma PA-C LAB - BLOOD DRAW Edited Resu lt - Final Performing Organization Address City/[facility] de Phone Number [employer] [address] [address], [employer] [employer] [address] [address] * ASSAY OF MAGNESIUM (10/02/2024 7:48 AM EST) MAGNESIUM 2.2 1.5 - 2.5 mg/dL [facility] [facility] Blood Blood / Unknown 10/02/2024 7 :48 AM EST 10/02/2024 7:49 AM EST Narrative [employer] [facility] - 10/06/2024 4:34 PM EDT FASTING:YES us Amy Ledesma PA-C LAB - BLOOD DRAW Edited Resu lt - Final Performing Organization Address City/[facility]/ZIP Co de Phone Number [employer] [address] [address], [employer] [employer] [address] [address] * (ABNORMAL) HEMOGLOBIN GLYCOSYLATED A1C (10/02/2024 7:48 AM EST) HEMOGLOBIN A1C 6.3(H) <5.7 % of total Hgb [employer] Comment: For someone without known diabetes, a [...] AM EST 10/02/2024 7:49 AM EST Narrative [employer] [facility] - 10/06/2024 4:34 PM EDT FASTING:YES us Amy Ledesma PA-C LAB - BLOOD DRAW Edited Resu lt - Final [employer] [address] [address], [employer] [address] [address] * (ABNORMAL) LIPID PANEL (10/02/2024 7:48 AM EST) CHOLESTEROL, TOTAL 129 <200 mg/dL [facility] [facility] HDL CHOLESTEROL 49(L) > OR = 50 mg/dL [employer] [facility] TRIGLYCERIDES 115 <150 mg/dL [facility] [facility] LDL-CHOLESTEROL 60 99 mg/dL (calc) [employer] Comment: Reference range: <100 Desirable range <100 mg/dL for primary prevention; ?? <70 mg/dL for patients with CHD or diabetic patients with > or = 2 CHD risk factors. LDL-C is now calculated using the Terry calculation, which is a validated novel method providing better accuracy than the Friedewald equation in the estimation of LDL-C. Jurgen BAI et al. FELY. 2013;310(19): 6414-9496 (http://education.Frilp/faq/IBN001) CHOL/HDLC RATIO 2.6 <5.0 (calc) [facility] NON-HDL CHOLESTEROL 80 <130 mg/dL (calc) [employer] Comment: For patients with diabetes plus 1 major ASCVD risk factor, treating to a non-HDL-C goal of <100 mg/dL (LDL-C of <70 mg/dL) is considered a therapeutic option. Blood Blood / Unknown 10/02/2024 7 :48 AM EST 10/02/2024 7:49 AM EST Narrative [facility] - 10/06/2024 4:34 PM EDT FASTING:YES us Amy Ledesma PA-C LAB - BLOOD DRAW Final Resul t [employer] [address] [address], [employer] [address] [address] * (ABNORMAL) COMPREHENSIVE METABOLIC PANEL (10/02/2024 7:48 AM EST) GLUCOSE 113(H) 65 - 99 mg/dL [employer] [facility] Comment: ?Fasting reference interval For someone without known diabetes, a glucose value between 100 and 125 mg/dL is consistent with prediabetes and should be confirmed with a follow-up test. UREA NITROGEN (BUN) 14 7 - 25 mg/dL [employer] [facility] CREATININE (blood) 0.67 0.50 - 1.05 mg/dL [employer] EGFR 97 > OR = 60 mL/min/1. 73m2 [employer] BUN/CREATININE RATIO SEE NOTE: [employer] Comment: ?? Not Reported: BUN and Creatinine are within ?? reference range. ? SODIUM 140 135 - 146 mmol/L [employer] POTASSIUM 4.0 3.5 - 5.3 mmol/L [employer] CHLORIDE 105 98 - 110 mmol/L [employer] CARBON DIOXIDE 25 20 - 32 mmol/L [employer] CALCIUM 9.3 8.6 - 10.4 mg/dL [employer] PROTEIN, TOTAL 7.1 6.1 - 8.1 g/dL [employer] ALBUMIN 4.5 3.6 - 5.1 g/dL [facility] GLOBULIN 2.6 1.9 - 3.7 g/dL (calc) [facility] ALBUMIN/GLOBULI N RATIO 1.7 1.0 - 2.5 (calc) [facility] BILIRUBIN, TOTAL 0.4 0.2 - 1.2 mg/dL [facility] ALKALINE PHOSPHATASE 56 37 - 153 U/L [facility] AST 14 10 - 35 U/L [facility] ALT 13 6 - 29 U/L [facility] Blood Blood / Unknown 10/02/2024 7 :48 AM EST 10/02/2024 7:49 AM EST Narrative [facility] [facility] - 10/06/2024 4:34 PM EDT FASTING:YES Amy Ledesma PA-C LAB - BLOOD DRAW Edited Resu lt - Final [employer] [address] [address], [employer] [address] [address] * REFERRAL SCANNED DOCUMENT (10/01/2024 3:00 AM EST) 10/01/2024 3:00 AM EST Amy Ledesma PA-C SCAN REFERRAL Final Result * HEPATITIS C ANTIBODY (06/14/2019 9:20 AM EST) HEPATITIS C VIRUS SCREEN NEGATIVE NEGATIVE [facility] Blood specimen (specimen) Blood / Unknown 06/14/2019 9:20 AM EST 06/14/2019 9:22 AM EST Narrative [facility] - 06/14/2019 12:51 PM EST [employer], a member of [address] [address] Manufacturing Automation Engineer - Gale Etienne MD PT ID [id number] ORD# [id number] Mireya ELISE LAB - BLOOD DRAW Final Result [facility] [address] [place] [address], * HIV-1 & HIV-2 ANTIBODIES (10/03/2013 2:06 PM EST) HIV 1 AND 2 ANTIBODY SCREEN NEGATIVE NEGATIVE [facility] Blood specimen (specimen) Blood / Unknown 10/03/2013 2:06 PM EST 10/03/2013 2:46 PM EST Narrative [facility] - 10/04/2013 8:35 AM EST [facility] [address] [place] [address] PT ID [id number] ORD# [id number] Opal Hadley PA-C LAB - BLOOD DRAW Edited [facility] [address] [place] [address], from Last 3 Months or Most Recently Relevant to Health Maintenance [place] Care Teams Director Of Industrial Relations Relationship Specialty Start Date End Date Amy Ledesma PA-C [address] [place] [address] PCP - General [place] 08/23/21
--- OUTSIDE RECORDS SUMMARY | 2024-10-08 12:43 | XMS_ITS | Encounter Summary ---
Author Organization [facility] Address [address] [place] [address] Care Team Providers Care Mortician Investigator Name Role Phone Amy Ledesma Primary Care Provider [phone] Reason for Referral * Cardiac Stress Testing (Routine) - Authorized Specialty Diagnoses / Procedures Referred By Contac t Referred To Contact Cardiology Diagnoses PAF (paroxysmal atrial fibrillation) ([facility]) SVT (supraventricular tachycardia) ([facility]) Palpitations Procedures Cardiac event monitor NV EXTERNAL PATIENT ACTIVATED ECG DOWNLOAD W RESULTS & INTERP <= 30 DAYS NV EXTERNAL PAT AUTO ACTIVATED ECG INCLUDING TRANSMISSION UP TO 30 DAYS NV EXTERNAL MOBILE CV TELEMETRY W ECG RECORDING <=30D PHYSCIAN REV & INTERP NV EXTERNAL MOBILE CV TELEMETRY W ECG RECORDING TECH SUPPORT UP TO 30 DAYS NV ECG UP TO 30 DAYS RECORDING Bhavana Key PA [address] [place] [address] Phone: tel: fax: Referral ID Status Reason Start Date Expiration Date V isits Requested Visits Authorized [id number] Authorized 10/01/2024 10/01/2025 1 1 Encounter Details Date Type Department Care Team (Late st Contact Info) Description 10/01/2024 2:10 PM EST Office Visit [facility] - [address] [place] [address] Bhavana Key PA [address] [place] [address] PAF (paroxysmal atrial fibrillation) (CMS/HCC) (Primary Dx); SVT (supraventricular tachycardia) (CMS/HCC); Palpitations; Primary hypertension Social History Tobacco Use Types Packs/Day Years [...] on file documented as of this encounter Last Filed Vital Signs Vital Sign Reading Time Taken Comments Blood Pressure 112/68 10/01/2024 2:19 PM EST Pulse 58 10/01/2024 2:19 PM EST Temperature - - Respiratory Rate 18 10/01/2024 2:19 PM EST Oxygen Saturation 98% 10/01/2024 2:19 PM EST Inhaled Oxygen Concentration - - Weight - - Height - - Body Mass Index - - documented in this encounter Ordered Prescriptions Prescription Sig Dispense Quantity Refills Last Filled Start Date End Date dronedarone (MULTAQ) 400 mg tablet Take 1 tablet (400 mg total) by mouth 2 (two) times a day with meals. Stop bisoprolol 60 each 2 10/01/2024 documented in this encounter Progress Notes * RAPHAEL Yu - 10/01/2024 2:10 PM EST Please call with any questions or concerns Bhavana Key PA-C [phone] [facility] [address] [place] [id number] Would start multaq 400 mgs twice a day and stop bisoprolol Monitor will be for 21 days will be sent in mail in 7-10 day business days * RAPHAEL Yu - 10/01/2024 2:10 PM EST PRIMARY PRESCRIPTION EYEGLASS MAKER: Francis Mar MD PCP: RAPHAEL Childress Alali is a 64 y.o. 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 Palpitations and anxiety that are disabling HTN Symptomatic SVT Cardiac testing- -14 day ROCT brief AT <6 secs, occasional PACs -Stress echo 2013 normal -Echo 10/2020 normal LV function. She presents today for evaluation of her A-fib. Since her last visit with Dr. Mar September 2023 she has had several brief episodes of rapid palpitations less than 2 minutes, continues to have palpitations almost a daily basis. She does have an Apple Watch but does not know how to use it and only makes her more anxious. She does not recall when she was on the Multaq did her symptoms completely resolved. On her visit with Dr. Mar he spent a great deal of time discussing with her antiarrhythmics as well as consideration of ablation. She resides with her uses a cane for ambulation, no recent falls, her anxiety is disabling she often does not leave the house unless someone goes out with her. She denies presyncope, syncope, chest pain at rest or exertion, dyspnea at rest or exertion, orthopnea, PND. She does not consume alcohol use drugs. Her anxiety continues to be a problem andhas not greatly improved over time despite the support of her family. ACTIVE MEDICATIONS: No outpatient medications have been marked as taking for the 10/01/24 encounter (Office Visit) with RAPHAEL Yu. ALLERGIES: No Known Allergies FAMILY HISTORY: No family history on file. SOCIAL HISTORY: Social History Tobacco Use Smoking status: Never Smokeless tobacco: Never Substance Use Topics Alcohol use: No PHYSICAL EXAM: There were no vitals taken for this visit. There is no height or weight on file to calculate BMI. Physical Exam Constitutional: General: She is not in acute distress. Appearance: She is not diaphoretic. Comments: Well-groomed, younger appearing, anxious Eyes: Pupils: Pupils are equal, round, and reactive to light. Neck: Vascular: No carotid bruit. Cardiovascular: Rate and Rhythm: Normal rate and regular rhythm. Heart sounds: Normal heart sounds. Pulmonary: Breath sounds: Normal breath sounds. Abdominal: Palpations: Abdomen is soft. Musculoskeletal: General: No swelling. Cervical back: No rigidity. Skin: General: Skin is warm and dry. Coloration: Skin is not jaundiced. Neurological: General: No focal deficit present. Mental Status: She is alert and oriented to person, place, and time. Psychiatric: Mood and Affect: Mood normal. 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 Shashi Ragland MD we discussed the following today: ASSESSMENT/PLAN: Problem List Items Addressed This Visit Hypertension PAF (paroxysmal atrial fibrillation) ([facility]) - Primary Relevant Medications dronedarone (MULTAQ) 400 mg tablet Other Relevant Orders CBC and differential Thyroid stimulating hormone with reflex to free t4 and free t3 Comprehensive metabolic panel Cardiac event monitor Palpitations Relevant Orders CBC and differential Thyroid stimulating hormone with reflex to free t4 and free t3 Comprehensive metabolic panel Cardiac event monitor SVT (supraventricular tachycardia) ([facility]) Relevant Medications dronedarone (MULTAQ) 400 mg tablet Other Relevant Orders CBC and differential Thyroid stimulating hormone with reflex to free t4 and free t3 Comprehensive metabolic panel Cardiac event monitor Highly symptomatic PAF anticoagulated for stroke reduction with a [id number] score of 3 risk benefits of long-term anticoagulation reviewed and agrees to continue-surveillance labs ordered. We again discussed her symptoms, frequency of episodes, strongly suggested stopping bisoprolol and resumingMultaq 400 mg twice a day. She is anxious this is not going to help suggested wearing a 21-day R OCT in a week to assess burden which she agrees to. She will follow-up in 3 months time or sooner if clinically indicated. Extensive reassurance was given all questions were answered. Did review alternative antiarrhythmics she states she is too nervous and wants to retrial the Multaq is not interestedat this time in ablation. Hypertension well-controlled. Thank you for allowing us to participate in the care of this patient. Today's documentation was made using voice recognition software.This note may contain grammatical errors secondary to this software. Cosigned by Francis Mar MD at 10/01/2024 3:49 PM EST documented in this encounter Plan of Treatment Upcoming Encounters Date Type Department Care Team (Late st Contact Info) Description 12/19/2024 11:00 AM EDT Appointment [facility] [address] [place] [address] 01/01/2025 10:40 AM EDT Office Visit [facility] - [address] [place] [address] Bhavana Key PA [address] [place] [address] Scheduled Orders Name Type Priority Associated Diagnoses Order Schedule CBC and differential Lab Routine PAF (paroxysmal atrial fibrillation) ([facility]) SVT (supraventricular tachycardia) ([facility]) Palpitations 1 Occurrences starting 10/01/2024 until 10/01/2025 Thyroid stimulating hormone with reflex to free t4 and free t3 Lab Routine PAF (paroxysmal atrial fibrillation) ([facility]) SVT (supraventricular tachycardia) ([facility]) Palpitations 1 Occurrences starting 10/01/2024 until 10/01/2025 Comprehensive metabolic panel Lab Routine PAF (paroxysmal atrial fibrillation) ([facility]) SVT (supraventricular tachycardia) ([facility]) Palpitations 1 Occurrences starting 10/01/2024 until 10/01/2025 Cardiac event monitor Cardiac Services Routine PAF (paroxysmal atrial fibrillation) ([facility]) SVT (supraventricular tachycardia) ([facility]) Palpitations Expected: 10/15/2024, Expires: 10/01/2025 documented as of this encounter Visit Diagnoses Diagnosis PAF (paroxysmal atrial fibrillation) ([facility])- Primary Atrial fibrillation SVT (supraventricular tachycardia) ([facility]) Other specified cardiac dysrhythmias Palpitations Primary hypertension Unspecified essential hypertension documented in this encounter Discontinued Medications Medication Sig Discontinue Reason Start Date End Da te bisoprolol (ZEBETA) 5 mg tablet TAKE 1 TABLET BY MOUTH DAILY Therapy completed 05/28/2024 10/01/2024 documented as of this encounter Care Teams Mortician Investigator Relationship Specialty Start Date End Date Amy Ledesma PA [address] [place] [address] PCP - General 04/06/23 documented as of this encounter
[2024-10-08 13:02] LABS: Alanine Aminotransferase 22 U/L (0-31); Albumin Level 4.4 g/dL (3.5-5.0); Alkaline Phosphatase 59 U/L (39-117); Anion Gap 10 (12-20); Aspartate Amino Transferase 18 U/L (5-31); Bilirubin Total 0.5 mg/dL (0.0-1.0); Blood Urea Nitrogen 13 mg/dL (9-16); Calcium 9.1 mg/dL (8.4-10.2); Carbon Dioxide 30 mmol/L (22-29); Chloride 108 mmol/L (96-108); Estimated Glomerular Filt Rate > 60; Glucose Random 129 mg/dL (60-115); Potassium 3.7 mmol/L (3.3-5.1); Sodium 144 mmol/L (135-145); Total Protein 7.8 g/dL (6.5-8.0)
[2024-10-08 13:06] LABS: TSH reflex Free T4 1.98 uIU/mL (0.32-4.0)
[2024-10-09 07:13] LABS: Triiodothyronine T3 Free 3.5 pg/mL (2.3-4.2)
== END 2024-10-08 10:29 | disposition home or self-care (01) ==
LOC: HO.LAB 10:28
PROVIDERS: Visit Provider Physician Assistant
DX: I48.0 Paroxysmal atrial fibrillation (principal); I47.10 Supraventricular tachycardia, unspecified; R00.2 Palpitations
CPT/HCPCS: 36415; 80053; 84443; 84481; 85025